=== PATIENT | female | born 1990 | race Hispanic/Latino ===

== ENCOUNTER 2016-09-30 20:15 | Emergency (ER) | payer SELFPAY ==
[~2016-09-30] VITALS: Ht 149.9 cm; Wt 106.0 kg
[~2016-09-30 20:15] MED LIST: AMOXICILLIN500 MG PO; BIOTIN1000 MCG PO; BIOTIN5000 MC1 PO; CITALOPRAM20 MG PO; FLEXERIL PO; LEXAPRO10 MG OR; LORTAB5 PO; MACRODANTIN100 MG PO; MECLIZINE25 MG PO; METROGEL VAG0.75 % VA; MULTIVITAM10 PO; NAPROSYN500 MG PO; NO HOME MEDS; PARAGARD IU; PERCOCET 5/325M1 TAB OR; PHENTERMINE37.5 MG PO; PRE-NATAL OR; PRENATAL1 TA1; ULTRAM50 M1 OR; ULTRAM50 M1 PO; UNKNOWN ANTIBIOTIC; ZOFRAN ODT4 MG PO; [UNRECOGNIZED DRUG - OTHER]; [UNRECOGNIZED DRUG - OTHER] PO
[2016-09-30] MEDS ORDERED: KEFLEX500 MG PO (21:12)
[2016-09-30 21:30] VITALS: BP 145/74
== END 2016-09-30 21:30 | disposition home or self-care (01) | DRG 607 ==
LOC: ED 20:15
DX: S70.361A Insect bite (nonvenomous), right thigh, initial encounter (principal); L08.9 Local infection of the skin and subcutaneous tissue, unspecified; S80.861A Insect bite (nonvenomous), right lower leg, initial encounter; W57.XXXA Bitten or stung by nonvenomous insect and other nonvenomous arthropods, initial encounter

== ENCOUNTER 2018-08-21 15:00 | Outpatient (RCR) | payer OTHER ==
[~2018-08-21 15:00] MED LIST changes: +KEFLEX500 MG PO
== END 2018-08-21 16:00 | disposition home or self-care (01) | DRG 552 ==
LOC: PT 15:00
PROVIDERS: ATTEND Family Medicine
DX: M54.5 Low back pain (principal); M87.851 Other osteonecrosis, right femur; M79.605 Pain in left leg; M79.604 Pain in right leg

== ENCOUNTER → 2018-08-24 | Outpatient (REF) | payer OTHER ==
[2018-08-24 19:37] LABS: HEMATOCRIT 36.7 % (37.0-47.0); HEMOGLOBIN 11.8 g/dl (12.0-16.0); IMMATURE GRANULOCYTES 0.4 % (0.0-5.0); MEAN CELL VOLUME 84.2 fL CALC (80.0-100.0); MEAN CORPUSCULAR HGB 27.1 pG CALC (26.0-32.0); MEAN CORPUSCULAR HGB CONC 32.2 g/L CALC (32.0-36.0); NEUT# 5.49 thou/uL (2.00-7.15); RED BLOOD COUNT 4.36 mill/uL (4.20-5.60); RED CELL DISTRI WIDTH 14.6 % (11.5-15.5)
[2018-08-24 19:58] LABS: ALBUMIN 4.1 g/dL (3.2-5.0); ALKALINE PHOSPHATASE 83 u/l (38-126); ANION GAP 12 (6-22 (CALC)); BILIRUBIN, TOTAL 0.4 mg/dL (0.0-1.4); BUN 8 mg/dL (7-17); BUN/CREATININE RATIO 13 (12-20 (CALC)); CALCULATED LDLCHOLESTEROL 127 mg/dL (62-129 (CALC)); CARBON DIOXIDE 25 mmol/l (22-30); CHLORIDE 107 mmol/l (95-108); CHOLESTEROL HDL RATIO 4.7 (<4.4 (CALC)); CREATININE 0.6 mg/dL (0.5-1.0); GFR > 60 ML/MIN (>=60 (CALC)); GFR FOR AFR.AMER. > 60 ML/MIN (>=60 (CALC)); HDL CHOLESTEROL 39 mg/dL (>=40); POTASSIUM 3.8 mmol/l (3.5-5.1); SGOT/AST 29 u/l (14-36); SODIUM 141 mmol/l (137-146); TOTAL CHOLESTEROL 184 mg/dl (0-199); TOTAL PROTEIN 7.3 g/dL (6.3-8.2); TOTAL TRIGLYCERIDES 88 mg/dl (30-149); VLDL CHOLESTROL 18 mg/dl (2-29 (CALC))
[2018-08-24 20:29] LABS: TSH, 3RD GENERATION 1.28 uIU/mL (0.47 - 4.68)
== END | disposition home or self-care (01) | DRG 951 ==
LOC: LAB 19:20
PROVIDERS: ATTEND Family Medicine
DX: Z00.00 Encounter for general adult medical examination without abnormal findings (principal)

== ENCOUNTER 2020-03-28 09:25 | Emergency (ER) | payer OTHER ==
[~2020-03-28] VITALS: Ht 149.9 cm; Wt 122.0 kg
[2020-03-28 10:19] LABS: HEMATOCRIT 39.7 % (37.0-47.0); HEMOGLOBIN 12.4 g/dl (12.0-16.0); IMMATURE GRANULOCYTES 0.4 % (0.0-5.0); MEAN CELL VOLUME 83.1 fL CALC (80.0-100.0); MEAN CORPUSCULAR HGB 25.9 pG CALC (26.0-32.0); MEAN CORPUSCULAR HGB CONC 31.2 g/dL CAL (32.0-36.0); NEUT# 3.59 thou/uL (2.00-7.15); RED BLOOD COUNT 4.78 mill/uL (4.20-5.60); RED CELL DISTRI WIDTH 15.2 % (11.5-15.5)
[2020-03-28 10:47] LABS: ACT PARTIAL THROMBO TIME 27.3 SECONDS (20.0-32.5); PROTHROMBIN TIME 9.5 SECONDS (9.0-12.5)
[2020-03-28 11:02] LABS: ALBUMIN 3.3 g/dL (3.2-5.0); ALKALINE PHOSPHATASE 69 u/l (38-126); ANION GAP 13 (6-22 (CALC)); BILIRUBIN, TOTAL 0.2 mg/dL (0.0-1.4); BUN 10 mg/dL (7-17); BUN/CREATININE RATIO 16 (12-20 (CALC)); CARBON DIOXIDE 23 mmol/l (22-30); CHLORIDE 105 mmol/l (95-108); CREATININE 0.6 mg/dL (0.5-1.0); GFR > 60 ML/MIN (>=60 (CALC)); GFR FOR AFR.AMER. > 60 ML/MIN (>=60 (CALC)); POTASSIUM 3.3 mmol/l (3.5-5.1); SGOT/AST 31 u/l (14-36); SODIUM 137 mmol/l (137-146); TOTAL PROTEIN 6.5 g/dL (6.3-8.2)
[2020-03-28 12:59] LABS: C-REACTIVE PROTEIN 4.2 mg/dL (0-0.9)
[2020-03-28 16:50] VITALS: BP 142/74
== END 2020-03-28 16:50 | disposition short-term general hospital (02) | DRG 177 ==
LOC: ED 09:25
PROVIDERS: Student in an Organized Health Care Education/Training Program
DX: U07.1 COVID-19 (principal); J12.89 Other viral pneumonia; R09.02 Hypoxemia; I95.9 Hypotension, unspecified
CPT/HCPCS: Q9967

== ENCOUNTER 2021-09-12 07:17 | Day surgery (SDC) | payer OTHER ==
[~2021-09-12] VITALS: Ht 149.9 cm; Wt 114.3 kg
[~2021-09-12 07:17] MED LIST changes: +FERROUS SULF325 M2 PO; +METHOCARBAMOL500 MG PO; +NAPROXEN EC500 MG PO; +PHENTERMINE15 MG PO; +QUDEXY XR50 MG PO; +VENLAFAXINE HCL75 M1 PO
[2021-09-12 07:37] LABS: HCG SERUM/URINE (NEG/POS) NEGATIVE (NEGATIVE)
[2021-09-12 09:32] VITALS: BP 132/84
== END 2021-09-12 09:35 | disposition home or self-care (01) | DRG 552 ==
LOC: ORM 07:17
PROVIDERS: ATTEND Physical Medicine & Rehabilitation Pain Medicine
DX: M51.26 Other intervertebral disc displacement, lumbar region (principal); M54.16 Radiculopathy, lumbar region; M51.36 Other intervertebral disc degeneration, lumbar region
CPT/HCPCS: J1100; Q9967

== ENCOUNTER 2021-11-21 07:14 | Day surgery (SDC) | payer OTHER ==
[~2021-11-21] VITALS: Ht 149.9 cm; Wt 108.4 kg
[~2021-11-21 07:14] MED LIST changes: +METFORMIN500 M2 PO
[2021-11-21 07:45] LABS: HCG SERUM/URINE (NEG/POS) NEGATIVE (NEGATIVE)
[2021-11-21 11:07] VITALS: BP 122/81
== END 2021-11-21 09:02 | disposition home or self-care (01) | DRG 552 ==
LOC: ORM 07:14
PROVIDERS: ATTEND Physical Medicine & Rehabilitation
DX: M43.16 Spondylolisthesis, lumbar region (principal); G89.4 Chronic pain syndrome; M54.16 Radiculopathy, lumbar region; M51.36 Other intervertebral disc degeneration, lumbar region; M51.26 Other intervertebral disc displacement, lumbar region
CPT/HCPCS: J1100; Q9967

== ENCOUNTER 2022-01-02 07:20 | Day surgery (SDC) | payer OTHER ==
[~2022-01-02] VITALS: Ht 149.9 cm; Wt 106.1 kg
[2022-01-02 09:08] VITALS: BP 113/77
== END 2022-01-02 08:50 | disposition home or self-care (01) | DRG 552 ==
LOC: ORM 07:20
PROVIDERS: ATTEND Physical Medicine & Rehabilitation
DX: M47.816 Spondylosis without myelopathy or radiculopathy, lumbar region (principal)

== ENCOUNTER 2022-01-30 07:07 | Day surgery (SDC) | payer OTHER ==
[~2022-01-30] VITALS: Ht 149.9 cm; Wt 104.3 kg
[2022-01-30 09:06] VITALS: BP 123/72
== END 2022-01-30 08:50 | disposition home or self-care (01) | DRG 552 ==
LOC: ORM 07:07
PROVIDERS: ATTEND Physical Medicine & Rehabilitation Pain Medicine
DX: M47.816 Spondylosis without myelopathy or radiculopathy, lumbar region (principal)

== ENCOUNTER 2022-02-13 08:21 | Day surgery (SDC) | payer OTHER ==
[~2022-02-13] VITALS: Ht 149.9 cm; Wt 104.3 kg
[2022-02-13 11:08] VITALS: BP 140/92
== END 2022-02-13 10:55 | disposition home or self-care (01) | DRG 552 ==
LOC: ORM 08:21
PROVIDERS: ATTEND Physical Medicine & Rehabilitation Pain Medicine
DX: M47.816 Spondylosis without myelopathy or radiculopathy, lumbar region (principal); G89.4 Chronic pain syndrome; M43.16 Spondylolisthesis, lumbar region; M54.16 Radiculopathy, lumbar region

== ENCOUNTER 2022-02-26 07:00 | Day surgery (SDC) | payer OTHER, MEDICAID ==
[~2022-02-26] VITALS: Ht 149.9 cm; Wt 107.0 kg
[2022-02-26 08:48] VITALS: BP 117/71
== END 2022-02-26 08:58 | disposition home or self-care (01) | DRG 392 ==
LOC: ORM 07:00
PROVIDERS: ATTEND Surgery
PROC: 0DB78ZX Excision of Stomach, Pylorus, Via Natural or Artificial Opening Endoscopic, Diagnostic (ICD-10-PCS; principal; 2022-02-26)
DX: K29.60 Other gastritis without bleeding (principal)

== ENCOUNTER 2022-05-30 06:49 | Day surgery (SDC) | payer OTHER, MEDICAID ==
[~2022-05-30] VITALS: Ht 149.9 cm; Wt 104.3 kg
[~2022-05-30 06:49] MED LIST changes: +CALCIUM GUMMIES PO; +MULTI VIT PO
[2022-05-30 09:27] VITALS: BP 122/65
== END 2022-05-30 10:01 | disposition home or self-care (01) | DRG 395 ==
LOC: ENDO 06:49 → ORM 12:00 → ENDO 12:00
PROVIDERS: ATTEND Surgery
PROC: 0D768ZZ Dilation of Stomach, Via Natural or Artificial Opening Endoscopic (ICD-10-PCS; principal; 2022-05-30)
DX: K95.89 Other complications of other bariatric procedure (principal); K31.89 Other diseases of stomach and duodenum; Y83.2 Surgical operation with anastomosis, bypass or graft as the cause of abnormal reaction of the patient, or of later complication, without mention of misadventure at the time of the procedure; Z98.84 Bariatric surgery status